=== PATIENT | male | born 1955 | race Caucasian/White ===

== ENCOUNTER 2021-10-21 03:54 | Day surgery (SDC) | payer OTHER ==
[2021-10-16 13:43] VITALS: BMI 59.1
[2021-10-21] MEDS ORDERED: BUPIVACAINE HCL/PF 0.5% (5MG/ML) 10 ML VIAL ONE (07:19)
[2021-10-21] MEDS ORDERED: LIDOCAINE HCL 1%, 10 MG/ML (20ML VIAL) ONE (07:19)
[2021-10-21] MEDS ORDERED: MIDAZOLAM HCL 2 MG/2 ML SINGLE DOSE VIAL ONE (07:50)
[2021-10-21] MEDS ORDERED: LIDOCAINE HCL/PF 2% SDV 5ML VIAL ONE (07:50)
[2021-10-21] MEDS ORDERED: PROPOFOL 20 ML ONE ×3 (07:50→07:53)
[2021-10-21] MEDS ORDERED: ceFAZolin SODIUM 1 GM VIAL ONE (07:51)
[2021-10-21] MEDS ORDERED: BUPIVACAINE HCL/PF 0.5% (5MG/ML) 10 ML VIAL IJ ONE (08:20)
[2021-10-21] MEDS ORDERED: LIDOCAINE HCL 1%, 10 MG/ML (20ML VIAL) INF ONE (08:20)
[2021-10-21] MEDS ORDERED: ceFAZolin SODIUM 1 GM VIAL IVPB ONE (08:22)
[2021-10-21] MEDS ORDERED: DEXAMETHASONE SOD PHOSPHATE 4 MG/1 ML VIAL ONE (08:27)
[2021-10-21] MEDS ORDERED: KETOROLAC TROMETHAMINE 30 MG/1 ML VIAL ONE (08:40)
[2021-10-21 12:34] VITALS: BP 110/56; PULSE 76; TEMP 97
== END 2021-10-21 12:10 | disposition home or self-care (01) ==
LOC: JASU-SURG 03:54
PROVIDERS: ATTEND Podiatrist Foot & Ankle Surgery
PROC: 0Y6Y0Z0 Detachment at Left 5th Toe, Complete, Open Approach (ICD-10-PCS; principal; 2021-10-21 08:00)
DX: M21.6X2 Other acquired deformities of left foot (principal); M20.42 Other hammer toe(s) (acquired), left foot; G62.9 Polyneuropathy, unspecified; M19.072 Primary osteoarthritis, left ankle and foot
CPT/HCPCS: 73630-TC-LT; 88305-TC; 88311-TC

== ENCOUNTER 2023-08-31 13:06 | Emergency (ER) | payer OTHER ==
[2023-08-31 13:22] VITALS: BP 124/80; PULSE 93; RESP 16; TEMP 98.4; BMI 25.2
[2023-08-31] MEDS ORDERED: LIDOCAINE 5% TOPICAL PATCH TP ONE (15:33)
[2023-08-31] MEDS ORDERED: ACETAMINOPHEN 325 MG TABLET (FP) PO ONE (15:33)
[2023-08-31] MEDS ORDERED: ACETAMINOPHEN 325 MG TABLET (FP) ONE (15:47)
[2023-08-31] MEDS ORDERED: LIDOCAINE 5% TOPICAL PATCH ONE (15:47)
[2023-08-31] MEDS ORDERED: LIDOCAINE PATCH REMOVAL MC SCH (22:00)
== END 2023-08-31 16:59 | disposition home or self-care (01) ==
LOC: FER 13:06
DX: M25.561 Pain in right knee (principal)
CPT/HCPCS: 73562-TC-RT-FY; 99283-25